=== PATIENT | male | born 2000 | race Two or more races ===

== ENCOUNTER 2023-07-21 18:58 | Emergency (ER) | payer OTHER ==
[~2023-07-21] VITALS: Ht 175.3 cm; Wt 86.2 kg
[2023-07-21] MEDS ORDERED: MEPERIDINE HCL/PF 50 MG/ML VIAL IM ONE (19:15)
== END 2023-07-21 21:29 | disposition home or self-care (01) ==
LOC: ER 18:58
DX: S82.031A Displaced transverse fracture of right patella, initial encounter for closed fracture (principal); W18.39XA Other fall on same level, initial encounter; Y93.89 Activity, other specified; Y92.413 State road as the place of occurrence of the external cause
CPT/HCPCS: 29505; 73560; 96372; 99283; J3490